=== PATIENT | male | born 1990 | race Caucasian/White ===

== ENCOUNTER 2018-03-28 15:09 | Observation (INO) ==
[2018-03-28] MEDS ORDERED: Naloxone 0.4 MG/ML INJ IVP PRN (21:17)
[2018-03-28] MEDS ORDERED: Acetaminophen 325 MG TABLET PO PRN (21:17)
--- NOTE | 2018-03-28 21:23 | Internal Med History&Physical ---
Date of Encounter: 03/29/18 Time of Encounter: 21:21 Internal Medicine - H&P: HPI Chief complaint: Cellulitis Admitted From: Direct Admit Plans for Post Hospital Care: Home History of present illness: Mr. Sweeney is a 27 year old male with no significant past medical history was transferred from [facility] for worsening left middle finger and right ulnar /wrist ulceration that started after pulling some weeds. No fevers or chills. Patient denies any IV drug abuse but admits to marijuana use. When he presented to the ED there he had an x-ray which showed signs of cellulitis of the third digit on the left but no osteomyelitis. Laboratory workup showed leukocytosis and wound cultures were collected showing staph aureus likely MRSA. The patient was receiving IV vancomycin and IV Zosyn there. Denies any headache, blurry vision, nausea, vomiting, chest pain, short of breath, abdominal pain, urinary symptoms, diarrhea, constipation, or neurological symptoms. Past Med Surg Social Fam HX - Past Medical History Medical history: migraine Psychiatric history: no psych history - Past Surgical History Additional surgical history: RECENT DENTAL EXTRACTIONS "THEY HAD TO BREAK MY (RT ) JAW." - Social History Smoking Status: Current every day smoker Smokeless Tobacco Status: No Alcohol use: rarely Drug use: marijuana Internal Medicine - H&P: Meds No Known Home Drugs 03/25/18 [History] 3 Allergy/AdvReac Type Severity Reaction Status Date / Time No Known Allergies Allergy Verified 03/28/18 18:51 All Systems PM: A 10-system review of systems was performed and is negative for pertinent findings except as documented above in the HPI. Review of systems: All systems reviewed are negative except for as mentioned above - Constitutional Vitals: Temp Pulse Resp BP Pulse Ox 98.8 F 87 16 125/77 99 03/28/18 18:37 03/28/18 18:37 03/28/18 18:37 03/28/18 18:37 03/28/18 18:37 Exam: GEN: NAD HEENT: AT, NC, No cyanosis, oral mucosa is moist, No JVD Lymphatics: No lymphadenoapthy Eyes: Extrocular muscles intact, anicteric CVS:RRR. S1, S2, No m/r/g RESP: CTAB ABD: Soft, NT, ND, +BS EXT: Significant erythema at the left third finger with granulation tissue. Right ulnar wrist area with erythema and necrotic ulceration at Center. No edema, No rashes, 2+ DP NEURO: Nonfocal, CN II-XII intact, No focal motor or sensory deficits Psych: Cooperative, Not anxious or depressed - Assessment and plan (1) Cellulitis Current Visit: No Status: Acute Assessment and plan: Admit patient to hospitals with an orthopedic consult. The patient will be placed on vancomycin as his cultures are growing staph aureus presumed to be MRSA. Nothing by mouth after midnight. IV fluids. Pain control. check UDS. Qualifiers: Site of cellulitis: unspecified site Qualified Code(s): L03.90 - Cellulitis , unspecified (2) DVT prophylaxis Current Visit: Yes Status: Acute Assessment and plan: SCDs - Time Spent With Patient Total time spent is greater than 50% in coordination of care (as documented) at patient's floor/unit and/or counseling patient:
[2018-03-28] MEDS: 0.9 % Sodium Chloride 1,000 ML IVC SCH (22:22)
[2018-03-29 00:45] LABS: Amphetamine Screen,Urine Negative ng/mL (Cutoff=1000); Barbiturate Screen,Urine Negative ng/mL (Cutoff=200); Benzodiazepines Screen,Urine Negative ng/mL (Cutoff=200); Cannabinoid Screen,Urine Positive ng/mL (Cutoff = 50); Cocaine Screen,Urine Negative ng/mL (Cutoff= 300); Opiate Screen,Urine Negative ng/mL (Cutoff=300); Phencyclidine Screen,Urine Negative ng/mL (Cutoff=25)
[2018-03-29] MEDS ORDERED: *HR* OxyCODONE/APAP 5/325 TABLET PO PRN (01:31)
[2018-03-29 06:56] LABS: Basophils # 0.1 K/mcL (0.0-0.2); Basophils % 1.4 %; Eosinophils # 0.3 K/mcL (0.0-0.6); Eosinophils % 4.1 %; Hematocrit 41.5 % (37.5-50.1); Hemoglobin 14.5 g/dL (12.9-16.9); Immature Granulocytes % 0.4 % (0-4); Lymphocytes % 27.8 %; Mean Corpuscular HGB Conc 34.9 g/dL (31.6-35.5); Mean Corpuscular Hemoglobin 31.9 pg (28.0-33.3); Mean Corpuscular Volume 91.4 fL (83.0-100.0); Mean Platelet Volume 11.9 fL (9.4-12.4); Monocytes # 0.8 K/mcL (0.0-1.3); Monocytes % 11.6 %; Neutrophils # 3.8 K/mcL (1.6-8.9); Platelet Count 167 K/mcL (140-400); Red Blood Count 4.54 M/mcL (4.19-5.50); Red Cell Distribution Width 12.6 % (11.5-14.5); Segmented Neutrophils % 54.7 %
[2018-03-29 07:14] LABS: BUN/Creatinine Ratio 18 (6-26); Blood Urea Nitrogen 11 mg/dL (6-20); Calcium 9.3 mg/dL (8.6-10.3); Carbon Dioxide 25 mEq/L (23-29); Chloride 109 mEq/L (98-107); Glucose 93 mg/dL (70-105); Magnesium 1.9 mg/dL (1.6-2.6); Osmolality,Calculated 289 (280-300); Potassium 3.9 mEq/L (3.5-5.1); Sodium 140 mEq/L (136-145); eGFR For African Americans > 60 (> 60); eGFR For Non-African Americans > 60 (> 60)
[2018-03-29] MEDS: 0.9 % Sodium Chloride 1,000 ML IVC SCH ×3 (09:48→23:43)
--- NOTE | 2018-03-29 11:49 | Internal Med Progress Note ---
Date of Encounter: 03/29/18 Time of Encounter: 11:00 - Assessment and plan (1) Cellulitis Current Visit: No Status: Acute Assessment and plan: Admit patient to hospitals with an orthopedic consult. The patient will be placed on vancomycin as his cultures are growing staph aureus presumed to be MRSA. Nothing by mouth after midnight. IV fluids. Pain control. check UDS. 03/29/2018-acute severe cellulitis of the left middle finger which is also spreading to proximal hand. I will continue IV vancomycin because the telemetry cultures are growing MRSA. Orthopedic surgery has been consulted and I will await their input Qualifiers: Site of cellulitis: unspecified site Qualified Code(s): L03.90 - Cellulitis , unspecified (2) DVT prophylaxis Current Visit: Yes Status: Acute Assessment and plan: SCDs - Time Spent With Patient Total time spent is greater than 50% in coordination of care (as documented) at patient's floor/unit and/or counseling patient: 25 - 35 minutes - Subjective Interval history: Patient claims that the pain in the left middle finger of the hand seems a little bit better. As per the nursing staff I was told that last night he had significant oozing of serosanguineous fluid - Constitutional Vitals: Temp Pulse Resp BP Pulse Ox 98.0 F 57 16 118/72 99 03/29/18 11:10 03/29/18 11:10 03/29/18 11:10 03/29/18 11:10 03/29/18 11:10 Exam: GENERAL: Alert, no distress, cooperative EYES: PERRLA, EOMI EARS: External ears normal, canals clear OROPHARYNX: Lips, mucosa, and tongue normal. Teeth and gums normal. Oropharynx normal. NECK: No jugulovenous distention, No carotid bruits, Carotid pulse normal contour, Supple LUNGS: Lungs clear to auscultation, Good diaphragmatic excursion CARDIAC: Normal S1 and S2; no rubs, murmurs, or gallops ABDOMEN: Abdomen soft, non-tender, BS normal, No masses or organomegaly EXTREMITIES: Left hand is bandaged and is not taken off because the patient preference. However pictures of how his finger looked were reviewed from the patient smartphone yesterday. Patient had a significantly swollen left middle finger with evidence of an ulceration which looks like on the medial side this is where the culture was taken and is preliminary growing MRSA. NEURO: Gait normal. Reflexes normal and symmetric. Sensation grossly intact, Cranial nerves II-XII intact PULSES: 2+ radial, 2+ carotid Rest of the exam is non contributory Internal Medicine: Result - Labs CBC & Chem 7: 03/29/18 06:20 03/29/18 06:20 Labs: Short CBC 03/29/18 Range/Units 06:20 WBC 7.0 (4.3-11.1) K/mcL Hgb 14.5 (12.9-16.9) g/dL Hct 41.5 (37.5-50.1) % Plt Count 167 (140-400) K/mcL Neutrophils # 3.8 (1.6-8.9) K/mcL BMP 03/29/18 06:20 Sodium 140 Potassium 3.9 Chloride 109 H Carbon Dioxide 25 BUN 11 Creatinine 0.60 L Glucose 93 Calcium 9.3 Consult Discharge Plan - Plan Referrals: NONE,PCP [Primary Care Provider] -
--- NOTE | 2018-03-29 16:27 | Orthopedic Consult Note ---
Date of Encounter: 03/29/18 Time of Encounter: 13:00 Assessment and Plan (1) Cellulitis Current Visit: No Status: Acute Left long finger cellulitis. Discussed case with Dr. John who recommends surgical I&D in the OR today. I discussed the procedure as well as r/b/a with the patient and he expressed understanding. All questions answered and consent was obtained and placed in chart. Bulky dressings were not removed on exam due to decision already made by Dr. John to proceed with surgery based on Dr. Kenny' exam the previous day. Dressings will be removed in OR. Plan is for packing to be placed during surgery to allow drainage overnight. Will reevaluate tomorrow and pull the packing at that time. After packing removed tomorrow, begin washing incision 3xdaily with soap/water and keep incision covered with dry gauze dressing until fully healed. Patient will need to continue this upon discharge home as well until fully healed. Continue to elevate hand. Should elevate inside stockinette from IV pole. ROM as tolerated. Pain control per hospitalist. Will follow up with Rosanna Fischer PA-C in [facility] office on 04/05/18 at 8:30am. Qualifiers: Site of cellulitis: unspecified site Qualified Code(s): L03.90 - Cellulitis , unspecified History of Present Illness Chief complaint: left long finger swelling HPI: Mr. Sweeney is a 27 year old male who was admitted to [place] [facility] on 03/25/18 for left long finger infection. He was receiving IV vancomycin and zosyn while there with no improvement. It was decided to have patient transferred to [facility] for hand consultation. Patient states roughly 3 weeks ago he was pulling weeds and ended up touching poison oak causing a "pimple-like" rash to both arms. He admits to picking at these which has caused a wound to his right wrist. Denies any of this to the fingers. He started to notice the swelling to his left long finger start roughly 1.5 weeks ago with no other known injuries. States the swelling continued to worsen with no open wounds or active drainage. States pain is constant aching, localized to finger and does not radiate up arm, worse when not elevated or with motion. Denies fevers, chills, SOB, chest pain. Patient does admit to marijuana use but denies IVDA. He is right hand dominant. Past Med Surg Social Fam HX - Past Medical History Medical history: migraine Psychiatric history: no psych history - Past Surgical History Additional surgical history: RECENT DENTAL EXTRACTIONS "THEY HAD TO BREAK MY (RT ) JAW." - Social History Smoking Status: Current every day smoker Smokeless Tobacco Status: No Alcohol use: rarely Drug use: marijuana Medications and Allergies No Known Home Drugs 03/25/18 [History] 3 Allergy/AdvReac Type Severity Reaction Status Date / Time No Known Allergies Allergy Verified 03/28/18 18:51 All Systems Reviewed: The remainder of the systems were reviewed and are negative - Constitutional Constitutional: as per HPI - Cardiovascular Cardiovascular: as per HPI - Respiratory Respiratory: as per HPI - Musculoskeletal Musculoskeletal: as per HPI Physical Exam - Constitutional Vitals: Temp Pulse Resp BP Pulse Ox 97.6 F 64 16 113/73 99 03/29/18 14:47 03/29/18 14:47 03/29/18 14:47 03/29/18 14:47 03/29/18 14:47 - Wrist & Hand left Location of pain: long finger (bulky gauze dressings in place to left hand, were not removed for exam. Full ROM of all other digits and wrist. brisk cap refill, grossly NV intact.) Results - Labs Result Diagrams: 03/29/18 06:20 03/29/18 06:20 Labs: Abnormal lab results Chloride 109 mEq/L (98-107) H 03/29/18 06:20 Creatinine 0.60 mg/dL (0.70-1.30) L 03/29/18 06:20 U Marijuana (THC) Screen Positive ng/mL (Cutoff = 50) H 03/29/18 00:20 H & H 03/29/18 Range/Units 06:20 Hgb 14.5 (12.9-16.9) g/dL Hct 41.5 (37.5-50.1) % All other labs normal. - Diagnostic results Wrist/Hand x-ray: report reviewed, image reviewed Consult Discharge Plan - Plan Referrals: NONE,PCP [Primary Care Provider] - - Attending Attestation Case and plan of care discussed with supervising physician who was available for all aspects of care.
--- NOTE | 2018-03-29 20:04 | Anesthesia Evaluation PreOp ---
Date of Encounter: 03/29/18 Time of Encounter: 20:02 - Past History Planned Operation: I&D L-long finger Abcess Cardiac History: Denies any Significant Hx Pulmonary History: Smoker ADOBE DEVELOPER History: Other (Hx Migraines) Other Medical History: Other (+MRSA cultured from L-long finger 03/26/2018) Anesthesia History: No Prior Anesthetic Complications, Past Anesthesia (Recent dental Extractions) Alcohol Use: rarely Drug use: marijuana Medications and Allergies No Known Home Drugs 03/25/18 [History] 3 Allergy/AdvReac Type Severity Reaction Status Date / Time No Known Allergies Allergy Verified 03/28/18 18:51 - Meds/Allergy Pre-op Review Medications Reviewed: Yes Allergies Reviewed: Yes Beta Blockers on Current Med List: No Anesthesia Results - Labs 03/29/18 06:20 03/29/18 06:20 Laboratory Results WBC 7.0 K/mcL (4.3-11.1) 03/29/18 06:20 RBC 4.54 M/mcL (4.19-5.50) 03/29/18 06:20 Hgb 14.5 g/dL (12.9-16.9) 03/29/18 06:20 Hct 41.5 % (37.5-50.1) 03/29/18 06:20 MCV 91.4 fL (83.0-100.0) 03/29/18 06:20 MCH 31.9 pg (28.0-33.3) 03/29/18 06:20 MCHC 34.9 g/dL (31.6-35.5) 03/29/18 06:20 RDW 12.6 % (11.5-14.5) 03/29/18 06:20 Plt Count 167 K/mcL (140-400) 03/29/18 06:20 MPV 11.9 fL (9.4-12.4) 03/29/18 06:20 Immature Gran % 0.4 % (0-4) 03/29/18 06:20 Seg Neutrophils % 54.7 % 03/29/18 06:20 Lymphocytes % 27.8 % 03/29/18 06:20 Monocytes % 11.6 % 03/29/18 06:20 Eosinophils % 4.1 % 03/29/18 06:20 Basophils % 1.4 % 03/29/18 06:20 Neutrophils # 3.8 K/mcL (1.6-8.9) 03/29/18 06:20 Lymphocytes # 2.0 K/mcL (0.6-4.6) 03/29/18 06:20 Monocytes # 0.8 K/mcL (0.0-1.3) 03/29/18 06:20 Eosinophils # 0.3 K/mcL (0.0-0.6) 03/29/18 06:20 Basophils # 0.1 K/mcL (0.0-0.2) 03/29/18 06:20 Sodium 140 mEq/L (136-145) 03/29/18 06:20 Potassium 3.9 mEq/L (3.5-5.1) 03/29/18 06:20 Chloride 109 mEq/L (98-107) H 03/29/18 06:20 Carbon Dioxide 25 mEq/L (23-29) 03/29/18 06:20 BUN 11 mg/dL (6-20) 03/29/18 06:20 Creatinine 0.60 mg/dL (0.70-1.30) L 03/29/18 06:20 Est GFR ( Amer) > 60 (> 60) 03/29/18 06:20 Est GFR (Non-Af Amer) > 60 (> 60) 03/29/18 06:20 BUN/Creatinine Ratio 18 (6-26) 03/29/18 06:20 Glucose 93 mg/dL (70-105) 03/29/18 06:20 POC Glucose 75 mg/dL (70-99) 03/29/18 17:33 Calculated Osmolality 289 (280-300) 03/29/18 06:20 Calcium 9.3 mg/dL (8.6-10.3) 03/29/18 06:20 Magnesium 1.9 mg/dL (1.6-2.6) 03/29/18 06:20 Urine Opiates Screen Negative ng/mL (Cwoudk=312) 03/29/18 00:20 Ur Barbiturates Screen Negative ng/mL (Pgbwkp=323) 03/29/18 00:20 Ur Phencyclidine Scrn Negative ng/mL (Cutoff=25) 03/29/18 00:20 Ur Amphetamines Screen Negative ng/mL (Nbgaqg=4584) 03/29/18 00:20 U Benzodiazepines Scrn Negative ng/mL (Izktsc=934) 03/29/18 00:20 Urine Cocaine Screen Negative ng/mL (Cutoff= 300) 03/29/18 00:20 U Marijuana (THC) Screen Positive ng/mL (Cutoff = 50) H 03/29/18 00:20 - Imaging EKG: pending Anesthesia Exam Vital Signs Temp Pulse Resp BP Pulse Ox 03/29/18 14:47 97.6 F 64 16 113/73 99 03/29/18 11:10 98.0 F 57 16 118/72 99 03/29/18 06:41 97.6 F 61 14 127/73 98 03/29/18 04:10 98.0 F 65 16 100/56 98 03/28/18 23:08 98.7 F 71 16 121/84 100 Intake and Output 03/29/18 03/29/18 03/29/18 07:59 15:59 23:59 Intake Total 250 / 250 100 / 100 Output Total 200 / 200 250 / 250 Balance 50 / 50 -150 / -150 Intake: IV Fluids 250 / 250 100 / 100 0.9 % Sodium Chloride 1,000 ML 100 / 100 @ 100 mls/hr IVC .Q10H MAGDIEL Rx#: [id number] Vancocin 1,000 MG In 0.9 % 250 / 250 Sodium Chloride 250 ML @ 167 mls/hr IVPB Q12H MAGDIEL Rx#: [id number] Oral 0 / 0 Output: Urine 200 / 200 250 / 250 Other: Meal NPO LUNCH NPO Weight 47.809 kg Blood Glucose* 105 86 75 Patient Weight 03/29/18 23:59 Weight 47.809 kg Height: 5'5" Weight: 105# BMI = 17.5 NPO (# of Hours): MNoc - HEENT Pupil (Motor): Pupils equal, EOMI Mallampati: II Teeth: Normal Oral Opening: Greater than 3 - ADOBE DEVELOPER LOC: Oriented ADOBE DEVELOPER Motor: Normal RUE, Normal LUE, Normal RLE, Normal LLE, Normal Face ADOBE DEVELOPER Sensory: Normal: RUE, LUE, RLE, LLE, Face - Cardiac Rhythm: Regular Murmur: None - Pulmonary Breath Sounds: bilateral Clear Respiratory Effort: Symmetrical Anesthesia Assess/Plan ASA Score: 2 Modified [place] Scale for Level of Consciousness: Cooperative, oriented, and tranquil Anesthetic Plan: General Monitoring Plan: Standard Monitors Recovery Plan: PACU
[2018-03-29] MEDS ORDERED: Vancomycin 1,000 MG VIAL ONE (21:10)
[2018-03-29] MEDS ORDERED: *HR* Propofol 200 MG/20 ML VIAL IVP ONE (21:20)
[2018-03-29] MEDS ORDERED: *HR* FentaNYL (PF) 100 MCG/2 ML VIAL ONE (21:20)
[2018-03-29] MEDS ORDERED: Lidocaine -MPF 2% 2 ML VIAL ONE (21:20)
[2018-03-29] MEDS ORDERED: *HR* Midazolam HCl 2 MG/2 ML VIAL ONE (21:20)
[2018-03-29] MEDS ORDERED: *HR* Succinylcholine 200 MG/10 ML VIAL IVP ONE (22:13)
[2018-03-29] MEDS ORDERED: Dexamethasone 4 MG/ML VIAL ONE (22:13)
[2018-03-29] MEDS ORDERED: Ondansetron 4 MG/2 ML VIAL ONE (22:13)
[2018-03-29] MEDS ORDERED: Acetaminophen IV 1,000 MG/100 ML INFUS..BTL ONE (22:42)
--- NOTE | 2018-03-29 22:42 | Operative Note ---
Date of procedure: 03/29/18 Pre-op diagnosis: Left long finger abscess Post-op diagnosis: same Procedure: Left long finger irrigation and drainage of abscess with debridement of necrotic tissue Anesthesia: SHALONDA Surgeon: Chucky John Was there an social work assistant present: No Estimated blood loss (cc): 10 Tourniquet Time (Minutes): 2 Specimen: Cultures Condition: stable Disposition: PACU Procedure in Detail: Indications: The patient is a 27-year-old [id number] man who has history of poison [place] exposure to his left hand. She started with a rash and swelling. Patient states it became infected and became very swollen. He was admitted to the [facility] 4 days ago. Culture showed positive MRSA. Procedure: The patient's IV antibiotics were held. He was brought back into the operating room and placed on the OR table in supine position with the affected upper extremity on a hand table. A sign in was performed. The patient underwent general anesthesia, a tourniquet was placed on the left upper extremity close to the axilla, and the left upper extremity was prepped and draped in the usual sterile fashion. A timeout was performed. The left long finger was swollen and erythematous, with an open wound on the radial side of the PIP joint. There was pus draining. The wound was copiously irrigated with normal saline. This thick clump of dense pus mixed with necrotic fat which was debrided with a Ray-Vianca. Once again copiously irrigated the wound with normal saline. After adequate irrigation, cultures were obtained. The patient's IV antibiotics were then administered. The left upper extremity was then elevated, exsanguinated with an Mynor wrap, and the tenderness pressure 250 mmHg. The dorsal and volar skin was opened up around the PIP joint. The extensor tendons were examined the dorsum, no involvement of the PIP joint is noted. A small rent in a 3-point was made, and the flexor tendons were intact, in good condition. No purulent fluid was noted within the sheath. The digital neurovascular bundle was also noted to be intact. A sharp debridement of the skin edges was performed. The patient essentially had a 2 cm diameter hole ulnar aspect of the PIP joint with full-thickness soft tissue loss. The tourniquet was deflated. The wounds once again irrigated with normal saline. The wound was packed with quarter-inch iodoform packing. One strip of packing was placed on the dorsum and another strip was placed volarly. Sterile dressings were applied. The patient is given a digital block with 10 mL of 0.5% Marcaine for postoperative pain control. He was extubated and taken to recovery room in stable condition. The patient's packing the pulled tomorrow afternoon and started on supportive washes with dry dressing changes, 3 times a day. He will continue on vancomycin for MRSA.
[2018-03-29] MEDS ORDERED: Acetaminophen 325 MG TABLET PO PRN (23:11)
[2018-03-29] MEDS ORDERED: Naloxone 0.4 MG/ML INJ IVP PRN (23:11)
[2018-03-29] MEDS: *HR* OxyCODONE/APAP 5/325 TABLET PO PRN (23:43)
[2018-03-30] MEDS: Nicotine 21 MG PATCH.TD24 TD SCH (09:35)
[2018-03-30] MEDS: 0.9 % Sodium Chloride 1,000 ML IVC SCH ×2 (09:46→21:35)
--- NOTE | 2018-03-30 12:19 | Infectious Disease Consult ---
Date of Encounter: 03/30/18 Time of Encounter: 12:14 Assessment and Plan (1) Leukocytosis Status: Resolved Assessment and plan: WBC elevated at 14.6 on admission. Likely secondary to left hand middle finger infection. Resolved. No blood cultures were obtained. Qualifiers: Leukocytosis type: unspecified Qualified Code(s): D72.829 - Elevated white blood cell count, unspecified (2) Abscess of skin or subcutaneous tissue Status: Acute Assessment and plan: Location: Left hand middle finger. Causative organism: MRSA. Etiology unclear, but the patient reports a recent history of dry, cracked skin to his hands which could have lead to a skin infection. X-ray of the left hand showed soft tissue swelling, but no osseous abnormality. Ortho consulted and following. Status post irrigation and drainage of the left hand middle finger abscess. Operative note reviewed. Purulence noted, but no evidence of joint, tendon, or bone involvement. Intra-op cultures are pending. Pre-op ESR 26, CRP 68. Wound care and activity restrictions per the ortho team. Continue Vancomycin IV. Pharmacy to dose. Goal trough ~15. Duration of treatment depends on the clinical picture. We will discuss the intra -op findings with the ortho team before deciding the final discharge treatment plan. Monitor renal function and for drug toxicity and dose-adjust antibiotics. Qualifiers: Site of cutaneous abscess: extremity Site of cutaneous abscess of extremity : hand Laterality: left Qualified Code(s): L02.512 - Cutaneous abscess of left hand (3) Cellulitis Status: Acute Assessment and plan: Location: Left hand middle finger. Causative organism likely MRSA. Continue antibiotics as above. Qualifiers: Site of cellulitis: unspecified site Qualified Code(s): L03.90 - Cellulitis , unspecified Infectious Disease HPI - Data of Consult Patient: new to practice Consult date: 03/30/18 Requesting Physician: Karen Talbot MD Primary Care Provider: PCP NONE Family Provider: PCP NONE - Consult Narrative Reason for consult: Left hand cellulitis and abscess History of present illness: Mr. Sweeney is a 27 year old male with no significant past medical history. The patient was admitted to [facility] on March 25 for left long finger abscess and cellulitis. He was transfered to [facility] 03/28/18 for orthopedic evaluation of left long finger abscess and cellulitis. We are consulted [facility] for antibiotic recommendations for left long finger abscess and cellulitis. Briefly, the patient is a 27-year-old male with past medical history as stated above. The patient states that about three weeks prior to presentation he got poison oak to his hands and multiple areas of his body. The poison oak rash healed, but he developed dry cracking skin to the bilateral hands. He reports he developed a couple of areas that resembled pustules to his arms that came to a head, drained, and resolved on their own. About a week prior to presentation, he developed pain, swelling, and redness to the distal aspect of the left long finger. He states that he developed an open draining ulcer to medial aspect that opened and started draining laura pus on the day he went to the ER. He reported severe pain, swelling, and redness of the left long finger with some mild swelling of the knuckle. He initially went to a local urgent care and was referred to [facility] ER. Upon presentation to [facility], the patient was afebrile and hemodynamically stable. He did have leukocytosis with neutrophilic predominance. He had a left hand x-ray that showed soft tissue swelling of the third digit, but no osseous abnormality. He did have a draining ulcer to the effected finger and a culture grew out MRSA. No blood cultures were obtained. He was started on IV Vanc and Zosyn and admitted to the hospital for further evaluation. While admitted at [facility], he received IV antibiotics. His WBC improved. He was evaluated by one of the orthopedists who recommended transfer to [facility] for formal orthopedics evaluation and possible surgery. On March 28, the patient was transferred here and evaluated by the [facility] team. He was taken to the OR and underwent irrigation and drainage of left long finger abscess by Dr. John. Operative note mentioned purulent drainage in the wound, but no involvement of bone or tendon. Intra-op cultures were obtained and are pending. Currently, the patient is on IV Vancomycin. We've been asked to evaluate and make further recommendations. During my exam today, the patient endorses the history as stated above. He denies fevers, chills, or rigors. Denies congestion, earache, or sore throat. Denies headache or neck pain, but reports he felt generally unwell. Denies chest pain, shortness of breath, or cough. Reported some intermittent nausea, worse with increased pain or when he tried to clean it and had to look at it. States his appetite was okay. Denies abdominal pain, urinary complaints. Reports pain was localized to the effected finger. Denies any redness, streaking , or edema of the hand. Denies oral thrush or additional skin lesions. The patient lives at home with his mother. He does not work outside the home. He reports exposure to dogs, cats, and birds. Denies exposure to water. Reports he smokes 1-2 packs of cigarettes per day. Denies alcohol use. Reports he usually smokes marijuana on a daily basis. CC: Karen Talbot MD Past Med Surg Social Fam HX - Past Medical History Attestation: Yes The following information was validated with the patient. Source: old records reviewed, nursing notes reviewed Medical history: migraine Psychiatric history: no psych history - Past Surgical History Surgical History: other Additional surgical history: RECENT DENTAL EXTRACTIONS "THEY HAD TO BREAK MY (RT ) JAW." - Social History Smoking Status: Current every day smoker Packs per day: 1 Smokeless Tobacco Status: No Alcohol use: rarely Drug use: marijuana Occupational status: unemployed Current living situation: Home, With Family Activity Level: Independent ambulation Recent Out of Country Travel Within the Last 8 Weeks: No Exposure or Possible Exposure to Illness During Travel: No Infectious Disease-CN:Meds OxyCODONE/APAP 5/325 [Percocet 5/325 MG] 1 each PO Q6HR PRN 5 Days #10 tablet [Rx] Sulfamethoxazole/Trimeth DS [Bactrim DS] 1 each PO BID 12 Days #24 tablet [Rx] 3 Allergy/AdvReac Type Severity Reaction Status Date / Time No Known Allergies Allergy Verified 03/28/18 18:51 All systems: reviewed and no additional remarkable complaints except as stated Exam - Constitutional Vitals: Temp Pulse Resp BP Pulse Ox 97.6 F 58 16 122/75 99 03/30/18 10:54 03/30/18 10:54 03/30/18 10:54 03/30/18 10:54 03/30/18 10:54 General appearance: cooperative, no acute distress, thin - Head Head exam: Present: atraumatic, normal inspection, normocephalic - Eye Eye exam: Present: EOMI, normal appearance, PERRL Pupils: Present: normal accommodation - ENT ENT exam: Present: mucous membranes moist - Neck Neck exam: Present: normal inspection - Respiratory Respiratory exam: Present: CTAB. Absent: rales, respiratory distress, rhonchi, wheezes - Cardiovascular Cardiovascular exam: Present: RRR, +S1, +S2 - GI/Abdominal GI/Abdominal exam: Present: normal bowel sounds, soft. Absent: distended, tenderness - Extremities Exam Extremities exam: Present: normal inspection, tenderness (Left hand middle finger). Absent: pedal edema Additional comments: Left hand middle finger dressing C/D/I. - Neurological Exam Neurological exam: Present: alert, oriented X3, no focal deficits - Psychiatric Psychiatric exam: Present: normal affect, normal mood - Skin Skin exam: Present: dry, intact, normal color, warm Infectious Disease CN: Results - Labs CBC & Chem 7: 03/31/18 08:25 03/31/18 08:25 Serology: Serology 03/30/18 03/29/18 03/29/18 Range/Units 08:59 17:33 11:10 WBC (4.3-11.1) K/mcL RBC (4.19-5.50) M/mcL Hgb (12.9-16.9) g/dL Hct (37.5-50.1) % MCV (83.0-100.0) fL MCH (28.0-33.3) pg MCHC (31.6-35.5) g/dL RDW (11.5-14.5) % Plt Count (140-400) K/mcL MPV (9.4-12.4) fL Immature Gran % (0-4) % Seg Neutrophils % % Lymphocytes % % Monocytes % % Eosinophils % % Basophils % % Neutrophils # (1.6-8.9) K/mcL Lymphocytes # (0.6-4.6) K/mcL Monocytes # (0.0-1.3) K/mcL Eosinophils # (0.0-0.6) K/mcL Basophils # (0.0-0.2) K/mcL Sodium (136-145) mEq/L Potassium (3.5-5.1) mEq/L Chloride (98-107) mEq/L Carbon Dioxide (23-29) mEq/L BUN (6-20) mg/dL Creatinine (0.70-1.30) mg/dL Est GFR ( Amer) (> 60) Est GFR (Non-Af Amer) (> 60) BUN/Creatinine Ratio (6-26) Glucose (70-105) mg/dL POC Glucose 75 86 (70-99) mg/dL Calculated Osmolality (280-300) Calcium (8.6-10.3) mg/dL Magnesium (1.6-2.6) mg/dL Vancomycin Trough 9 (5-10) mcg/mL Urine Opiates Screen (Chulus=704) ng/mL Ur Barbiturates Screen (Hdlepw=915) ng/mL Ur Phencyclidine Scrn (Cutoff=25) ng/mL Ur Amphetamines Screen (Gnafzi=6989) ng/mL U Benzodiazepines Scrn (Kqvddc=939) ng/mL Urine Cocaine Screen (Cutoff= 300) ng/mL U Marijuana (THC) Screen (Cutoff = 50) ng/mL 03/29/18 03/29/18 03/29/18 Range/Units 06:20 06:20 05:30 WBC 7.0 (4.3-11.1) K/mcL RBC 4.54 (4.19-5.50) M/mcL Hgb 14.5 (12.9-16.9) g/dL Hct 41.5 (37.5-50.1) % MCV 91.4 (83.0-100.0) fL MCH 31.9 (28.0-33.3) pg MCHC 34.9 (31.6-35.5) g/dL RDW 12.6 (11.5-14.5) % Plt Count 167 (140-400) K/mcL MPV 11.9 (9.4-12.4) fL Immature Gran % 0.4 (0-4) % Seg Neutrophils % 54.7 % Lymphocytes % 27.8 % Monocytes % 11.6 % Eosinophils % 4.1 % Basophils % 1.4 % Neutrophils # 3.8 (1.6-8.9) K/mcL Lymphocytes # 2.0 (0.6-4.6) K/mcL Monocytes # 0.8 (0.0-1.3) K/mcL Eosinophils # 0.3 (0.0-0.6) K/mcL Basophils # 0.1 (0.0-0.2) K/mcL Sodium 140 (136-145) mEq/L Potassium 3.9 (3.5-5.1) mEq/L Chloride 109 H (98-107) mEq/L Carbon Dioxide 25 (23-29) mEq/L BUN 11 (6-20) mg/dL Creatinine 0.60 L (0.70-1.30) mg/dL Est GFR ( Amer) > 60 (> 60) Est GFR (Non-Af Amer) > 60 (> 60) BUN/Creatinine Ratio 18 (6-26) Glucose 93 (70-105) mg/dL POC Glucose 105 H (70-99) mg/dL Calculated Osmolality 289 (280-300) Calcium 9.3 (8.6-10.3) mg/dL Magnesium 1.9 (1.6-2.6) mg/dL Vancomycin Trough (5-10) mcg/mL Urine Opiates Screen (Wwcsxl=823) ng/mL Ur Barbiturates Screen (Tfsyfz=808) ng/mL Ur Phencyclidine Scrn (Cutoff=25) ng/mL Ur Amphetamines Screen (Vqhgtw=0943) ng/mL U Benzodiazepines Scrn (Rofthc=983) ng/mL Urine Cocaine Screen (Cutoff= 300) ng/mL U Marijuana (THC) Screen (Cutoff = 50) ng/mL 03/29/18 Range/Units 00:20 WBC (4.3-11.1) K/mcL RBC (4.19-5.50) M/mcL Hgb (12.9-16.9) g/dL Hct (37.5-50.1) % MCV (83.0-100.0) fL MCH (28.0-33.3) pg MCHC (31.6-35.5) g/dL RDW (11.5-14.5) % Plt Count (140-400) K/mcL MPV (9.4-12.4) fL Immature Gran % (0-4) % Seg Neutrophils % % Lymphocytes % % Monocytes % % Eosinophils % % Basophils % % Neutrophils # (1.6-8.9) K/mcL Lymphocytes # (0.6-4.6) K/mcL Monocytes # (0.0-1.3) K/mcL Eosinophils # (0.0-0.6) K/mcL Basophils # (0.0-0.2) K/mcL Sodium (136-145) mEq/L Potassium (3.5-5.1) mEq/L Chloride (98-107) mEq/L Carbon Dioxide (23-29) mEq/L BUN (6-20) mg/dL Creatinine (0.70-1.30) mg/dL Est GFR ( Amer) (> 60) Est GFR (Non-Af Amer) (> 60) BUN/Creatinine Ratio (6-26) Glucose (70-105) mg/dL POC Glucose (70-99) mg/dL Calculated Osmolality (280-300) Calcium (8.6-10.3) mg/dL Magnesium (1.6-2.6) mg/dL Vancomycin Trough (5-10) mcg/mL Urine Opiates Screen Negative (Foqkgj=142) ng/mL Ur Barbiturates Screen Negative (Wyhgkz=199) ng/mL Ur Phencyclidine Scrn Negative (Cutoff=25) ng/mL Ur Amphetamines Screen Negative (Jvwmtj=0716) ng/mL U Benzodiazepines Scrn Negative (Fioemq=183) ng/mL Urine Cocaine Screen Negative (Cutoff= 300) ng/mL U Marijuana (THC) Screen Positive H (Cutoff = 50) ng/mL - VTE Documentation of Mechanical Device: Intermittent pneumatic compression device Consult Discharge Plan - Plan Instructions: Sulfamethoxazole/Trimethoprim (By mouth), Oxycodone/ Acetaminophen (By mouth), Acute Wound Care (DC) Referrals: Rosanna Fischer, PAC [Physician Food Checkers And Cashiers Supervisor] - 04/05/18 8:30 am Prescriptions: OxyCODONE/APAP 5/325 [Percocet 5/325 MG] 1 each PO Q6HR PRN 5 Days #10 tablet PRN Reason: Pain Sulfamethoxazole/Trimeth DS [Bactrim DS] 1 each PO BID 12 Days #24 tablet - Attending Attestation I examined this patient and my medical decision-making was reviewed with the Resident Physician. I agree with the documented findings, disposition and treatment plan as described except to the extent set forth below. Is an addendum to original report dictated by Pattie Jefferson CNP. Please refer to Prem funes for full detail. Patient is a 27-year-old gentleman who tells me that he has history of hemochromatosis came in with left hand middle finger infection with MRSA. Etiology for this infections unclear. Patient denied any trauma or animal bite. X-ray revealed soft tissue swelling but no osseous abnormality. Orthopedics were consulted and evaluated the patient and to complete for I&D. I spoke with Dr. Quinn and he told me that the infection appears superficial was no fascial compromise there is no bone or septic arthritis involvement. Intra-Op cultures were positive for MRSA Assessment and plan: Leukocytosis Abscess of the skin left hand middle finger with MRSA status post I&D Cellulitis Questionable hemochromatosis Recommendations: Continue vancomycin for now go vancomycin trough around 10 On discharge will probably switch him to oral antibiotics once susceptibilities are back In the meantime monitor labs and for drug toxicity We will continue to follow
--- NOTE | 2018-03-30 12:22 | Internal Med Progress Note ---
Date of Encounter: 03/30/18 Time of Encounter: 11:20 - Assessment and plan (1) Cellulitis Current Visit: No Status: Acute Assessment and plan: Admit patient to hospitals with an orthopedic consult. The patient will be placed on vancomycin as his cultures are growing staph aureus presumed to be MRSA. Nothing by mouth after midnight. IV fluids. Pain control. check UDS. 03/29/2018-acute severe cellulitis of the left middle finger which is also spreading to proximal hand. I will continue IV vancomycin because the telemetry cultures are growing MRSA. Orthopedic surgery has been consulted and I will await their input 03/30-left long finger abscess with MRSA in the wound -infectious disease has been consulted given MRSA and duration of therapy recommendations at the request of orthopedic surgery. Patient is postop day 1 of left long finger irrigation and drainage of abscess with debridement of necrotic tissue. For now we will continue IV vancomycin and tailor antibiotics appropriately Qualifiers: Qualified Code(s): L03.90 - Cellulitis, unspecified (2) DVT prophylaxis Current Visit: Yes Status: Acute Assessment and plan: SCDs - Time Spent With Patient Total time spent is greater than 50% in coordination of care (as documented) at patient's floor/unit and/or counseling patient: 25 - 35 minutes - Subjective Interval history: Patient was seen and examined at the bedside. He underwent a debridement and washing of the left long finger along with irrigation and drainage of necrotic tissue yesterday. Today it is in bandages and they will not removed for patient preference. - Constitutional Vitals: Temp Pulse Resp BP Pulse Ox 97.6 F 58 16 122/75 99 03/30/18 10:54 03/30/18 10:54 03/30/18 10:54 03/30/18 10:54 03/30/18 10:54 Exam: GENERAL: Alert, no distress, cooperative EYES: PERRLA, EOMI EARS: External ears normal, canals clear OROPHARYNX: Lips, mucosa, and tongue normal. Teeth and gums normal. Oropharynx normal. NECK: No jugulovenous distention, No carotid bruits, Carotid pulse normal contour, Supple LUNGS: Lungs clear to auscultation, Good diaphragmatic excursion CARDIAC: Normal S1 and S2; no rubs, murmurs, or gallops ABDOMEN: Abdomen soft, non-tender, BS normal, No masses or organomegaly EXTREMITIES: Left hand and bandage and not removed for patient preference NEURO: Gait normal. Reflexes normal and symmetric. Sensation grossly intact, Cranial nerves II-XII intact PULSES: 2+ radial, 2+ carotid Rest of the exam is non contributory Internal Medicine: Result - Labs CBC & Chem 7: 03/29/18 06:20 03/29/18 06:20 - VTE Documentation of Mechanical Device: Intermittent pneumatic compression device Consult Discharge Plan - Plan Referrals: Rosanna Fischer, PAC [Physician Traffic And Transport Planner] - 04/05/18 8:30 am
[2018-03-30] MEDS: *HR* OxyCODONE/APAP 5/325 TABLET PO PRN ×2 (16:20→22:55)
--- NOTE | 2018-03-30 16:32 | Orthopedics Progress Note ---
Date of Encounter: 03/30/18 Time of Encounter: 16:00 - Assessment and Plan (1) Status post incision and drainage Current Visit: Yes Status: Acute (2) Abscess of skin or subcutaneous tissue Current Visit: No Status: Acute Qualifiers: Site of cutaneous abscess: extremity Site of cutaneous abscess of extremity : hand Laterality: left Qualified Code(s): L02.512 - Cutaneous abscess of left hand Subjective Principal diagnosis: left finger abscess Interval history: Date of procedure: 03/29/18 Pre-op diagnosis: Left long finger abscess Procedure: Left long finger irrigation and drainage of abscess with debridement of necrotic tissue Patient seen for postoperative day 1 of his left long finger I&D by Dr. John. He states he is feeling well today and he states he is having less pain to left hand now. He is alert and oriented 3. Bulky dressing noted to the left long finger. Bulky dressing taken down. Packing removed. Mild bleeding noted with packing removal. Finger has cap refill less than 2 seconds. Wound was flushed with water and then gently cleansed with soap and water. This was rinsed and padded dry. New dressing applied with gauze and Kerlix. This was secured in place with paper tape. Patient was educated throughout this procedure is how to do this at home. He is to do this 3 times daily. While inpatient, nursing educated to perform TID wound cleansing and dressing changes. Patient to keep follow up in the office as scheduled. Objective Vital signs: Vital Signs Temp Pulse Resp BP Pulse Ox 03/30/18 10:54 97.6 F 58 16 122/75 99 03/30/18 06:41 97.7 F 70 15 117/73 98 03/30/18 03:00 97.6 F 63 14 122/71 97 03/30/18 00:56 97.5 F L 66 14 134/96 100 03/30/18 00:11 97.4 F L 65 16 140/93 100 03/29/18 23:38 97.5 F L 71 16 129/92 100 03/29/18 22:58 98.3 F 53 16 138/91 100 03/29/18 22:48 58 16 138/98 100 03/29/18 22:38 57 16 140/93 99 03/29/18 22:28 97.8 F 55 16 133/89 100 Intake and Output 03/30/18 03/30/18 03/30/18 07:59 15:59 23:59 Intake Total 480 / 480 1250 / 1250 Output Total 1900 / 1900 800 / 800 Balance -1420 / -1420 450 / 450 Intake: IV Fluids 1250 / 1250 0.9 % Sodium Chloride 1,000 ML 1000 / 1000 @ 100 mls/hr IVC .Q10H [facility] Rx#: [id number] Vancocin 1,500 MG In 0.9 % 250 / 250 Sodium Chloride 250 ML @ 166.67 mls/hr IVPB Q12H MAGDIEL Rx#: [id number] Oral 480 / 480 Output: Urine 1900 / 1900 800 / 800 Other: Weight 48.2 kg Patient Weight 03/30/18 23:59 Weight 48.2 kg - Labs CBC & BMP: 03/29/18 06:20 03/29/18 06:20 Labs: Abnormal lab results Chloride 109 mEq/L (98-107) H 03/29/18 06:20 Creatinine 0.60 mg/dL (0.70-1.30) L 03/29/18 06:20 U Marijuana (THC) Screen Positive ng/mL (Cutoff = 50) H 03/29/18 00:20 - VTE Documentation of Mechanical Device: Intermittent pneumatic compression device Consult Discharge Plan - Plan Referrals: Rosanna Fischer, PAC [Physician Crop Specialist] - 04/05/18 8:30 am
[2018-03-31] MEDS: Nicotine 21 MG PATCH.TD24 TD SCH (07:53)
[2018-03-31] MEDS: 0.9 % Sodium Chloride 1,000 ML IVC SCH (07:54)
[2018-03-31 08:48] LABS: Basophils # 0.1 K/mcL (0.0-0.2); Basophils % 1.1 %; Eosinophils # 0.2 K/mcL (0.0-0.6); Eosinophils % 2.3 %; Hematocrit 38.8 % (37.5-50.1); Hemoglobin 13.3 g/dL (12.9-16.9); Immature Granulocytes % 0.5 % (0-4); Lymphocytes % 46.2 %; Mean Corpuscular HGB Conc 34.3 g/dL (31.6-35.5); Mean Corpuscular Hemoglobin 30.7 pg (28.0-33.3); Mean Corpuscular Volume 89.6 fL (83.0-100.0); Mean Platelet Volume 11.3 fL (9.4-12.4); Monocytes # 0.6 K/mcL (0.0-1.3); Monocytes % 8.8 %; Neutrophils # 2.7 K/mcL (1.6-8.9); Platelet Count 177 K/mcL (140-400); Red Blood Count 4.33 M/mcL (4.19-5.50); Red Cell Distribution Width 12.4 % (11.5-14.5); Segmented Neutrophils % 41.1 %
[2018-03-31 09:26] LABS: BUN/Creatinine Ratio 8 (6-26); Blood Urea Nitrogen 5 mg/dL (6-20); C-Reactive Protein 7 mg/L (Less than 10); Calcium 8.9 mg/dL (8.6-10.3); Carbon Dioxide 26 mEq/L (23-29); Chloride 109 mEq/L (98-107); Glucose 84 mg/dL (70-105); Osmolality,Calculated 288 (280-300); Potassium 3.6 mEq/L (3.5-5.1); Sodium 141 mEq/L (136-145); eGFR For African Americans > 60 (> 60); eGFR For Non-African Americans > 60 (> 60)
--- NOTE | 2018-03-31 09:49 | Infectious Disease Progress No ---
Date of Encounter: 03/31/18 Time of Encounter: 09:47 - Assessment and Plan (1) Leukocytosis Current Visit: Yes Status: Resolved WBC elevated at 14.6 on admission. Likely secondary to left hand middle finger infection. Resolved. No blood cultures were obtained. Qualifiers: Leukocytosis type: unspecified Qualified Code(s): D72.829 - Elevated white blood cell count, unspecified (2) Abscess of skin or subcutaneous tissue Current Visit: No Status: Acute Location: Left hand middle finger. Causative organism: MRSA. Etiology unclear, but the patient reports a recent history of dry, cracked skin to his hands which could have lead to a skin infection. X-ray of the left hand showed soft tissue swelling, but no osseous abnormality. Ortho consulted and following. Status post irrigation and drainage of the left hand middle finger abscess. Operative note reviewed. Purulence noted, but no evidence of joint, tendon, or bone involvement. Intra-op cultures are positive for S. aureus, susceptibilities are pending, but likely MRSA based on previous results. Pre-op ESR 26, CRP 68. --> improved to 17 and 7, respectively. Wound care and activity restrictions per the ortho team. Continue Vancomycin IV. Pharmacy to dose. Goal trough ~15. Duration of treatment depends on the clinical picture. Can transition to PO Bactrim DS 1 tab PO BID to complete a 14 day course from the date of surgery. Treat through 04/11/18. Monitor renal function and for drug toxicity and dose-adjust antibiotics. Continue contact precautions per protocol. Qualifiers: Site of cutaneous abscess: extremity Site of cutaneous abscess of extremity : hand Laterality: left Qualified Code(s): L02.512 - Cutaneous abscess of left hand (3) Cellulitis Current Visit: No Status: Acute Location: Left hand middle finger. Causative organism likely MRSA. Continue antibiotics as above. Qualifiers: Site of cellulitis: unspecified site Qualified Code(s): L03.90 - Cellulitis , unspecified - Subjective Interval history: Patient seen and examined. No acute events noted overnight. Patient reports minimal pain at the surgical site. Denies any fevers or chills or rigors. Denies chest pain, shortness of breath, or cough. Denies nausea, vomiting, diarrhea, or constipation. Denies abdominal pain, urinary complaints, or appetite changes. Denies any oral thrush or skin lesions. Infect Dis PN-Objective Data - Labs CBC & Chem 7: 03/31/18 08:25 03/31/18 08:25 Labs: Laboratory Results - last 24 hr 03/31/18 03/31/18 03/31/18 08:25 08:25 08:25 WBC 6.5 RBC 4.33 Hgb 13.3 Hct 38.8 MCV 89.6 MCH 30.7 MCHC 34.3 RDW 12.4 Plt Count 177 MPV 11.3 Immature Gran % 0.5 Seg Neutrophils % 41.1 Lymphocytes % 46.2 Monocytes % 8.8 Eosinophils % 2.3 Basophils % 1.1 Neutrophils # 2.7 Lymphocytes # 3.0 Monocytes # 0.6 Eosinophils # 0.2 Basophils # 0.1 ESR 17 H Sodium 141 Potassium 3.6 Chloride 109 H Carbon Dioxide 26 BUN 5 L Creatinine 0.60 L Est GFR ( Amer) > 60 Est GFR (Non-Af Amer) > 60 BUN/Creatinine Ratio 8 Glucose 84 Calculated Osmolality 288 Calcium 8.9 C-Reactive Protein 7 Cultures: Cultures 03/29/18 22:50 Wound Culture - Preliminary Left Hand Staphylococcus aureus Exam - Constitutional Vitals: Temp Pulse Resp BP Pulse Ox 98.2 F 66 16 122/77 98 03/31/18 06:39 03/31/18 06:39 03/31/18 06:39 03/31/18 06:39 03/31/18 06:39 General appearance: cooperative, no acute distress, thin - Head Head exam: Present: atraumatic, normal inspection, normocephalic - Eye Eye exam: Present: EOMI, normal appearance, PERRL Pupils: Present: normal accommodation - ENT ENT exam: Present: mucous membranes moist - Neck Neck exam: Present: normal inspection - Respiratory Respiratory exam: Present: CTAB. Absent: rales, respiratory distress, rhonchi, wheezes - Cardiovascular Cardiovascular exam: Present: RRR, +S1, +S2 - GI/Abdominal GI/Abdominal exam: Present: normal bowel sounds, soft. Absent: distended, tenderness - Extremities Exam Extremities exam: Present: joint swelling (LEft hand middle finger PIP), tenderness (LEft hand third finger). Absent: pedal edema Additional comments: Left hand middle finger with mild edema and erythema. Surgical wound moist, beefy red with scant bloody drainage. No pus or foul odor noted. No purulence. - Neurological Exam Neurological exam: Present: alert, oriented X3, no focal deficits - Psychiatric Psychiatric exam: Present: normal affect, normal mood - Skin Skin exam: Present: dry, intact, normal color, warm - VTE Documentation of Mechanical Device: Intermittent pneumatic compression device Consult Discharge Plan - Plan Instructions: Sulfamethoxazole/Trimethoprim (By mouth), Oxycodone/ Acetaminophen (By mouth), Acute Wound Care (DC) Referrals: Rosanna Fischer, PAC [Physician Heel Seat Laster] - 04/05/18 8:30 am Prescriptions: OxyCODONE/APAP 5/325 [Percocet 5/325 MG] 1 each PO Q6HR PRN 5 Days #10 tablet PRN Reason: Pain Sulfamethoxazole/Trimeth DS [Bactrim DS] 1 each PO BID 12 Days #24 tablet - Attending Attestation I examined this patient and my medical decision-making was reviewed with the Resident Physician. I agree with the documented findings, disposition and treatment plan as described except to the extent set forth below.
[2018-03-31 10:14] VITALS: BP 127/80
[2018-03-31] MEDS: *HR* OxyCODONE/APAP 5/325 TABLET PO PRN (11:14)
--- NOTE | 2018-03-31 13:19 | Orthopedics Progress Note ---
Date of Encounter: 03/31/18 Time of Encounter: 12:45 - Assessment and Plan (1) Cellulitis Status: Acute POD#2 s/p Left LF I&D of abscess with debridement of necrotic tissue 03/29/18 Packing was removed yesterday. Continue washing incision 3xdaily with soap/water and keep incision covered with dry gauze dressing until fully healed. Patient will need to continue this upon discharge home as well until fully healed. ID also on board and recommend transitioning to PO bactrim upon discharge. Continue to elevate hand. ROM as tolerated. Pain control per hospitalist. Will follow up with Rosanna Fischer PA-C in [facility] office on 04/05/18 at 8:30am. Qualifiers: Site of cellulitis: unspecified site Qualified Code(s): L03.90 - Cellulitis , unspecified Subjective Principal diagnosis: POD#2 s/p Left LF I&D of abscess with debridement of necrotic tissue 03/29/18 Interval history: Patient doing well today with no events overnight. States pain is much improved. Admits he has not been trying to move the finger much. Objective Vital signs: Vital Signs Temp Pulse Resp BP Pulse Ox 03/31/18 10:13 98.3 F 65 16 127/80 99 03/31/18 06:39 98.2 F 66 16 122/77 98 03/31/18 04:27 98.1 F 61 14 125/75 100 03/30/18 20:19 98.1 F 61 14 117/82 98 03/30/18 16:43 98.0 F 60 17 155/86 100 Intake and Output 03/30/18 03/31/18 03/31/18 23:59 07:59 15:59 Intake Total 1240 / 1240 1350 / 1350 380 / 380 Output Total 1400 / 1400 650 / 650 700 / 700 Balance -160 / -160 700 / 700 -320 / -320 Intake: IV Fluids 1000 / 1000 1150 / 1150 0.9 % Sodium Chloride 1,000 ML 1000 / 1000 900 / 900 @ 100 mls/hr IVC .Q10H MAGDI[facility] Rx#: [id number] Vancocin 1,500 MG In 0.9 % 250 / 250 Sodium Chloride 250 ML @ 166.67 mls/hr IVPB Q12H MAGDI[facility] Rx#: [id number] Oral 240 / 240 200 / 200 380 / 380 Output: Urine 1400 / 1400 650 / 650 700 / 700 Other: Meal Breakfast Percent of Meal Consumed 100% Weight 49 kg Patient Weight 03/31/18 23:59 Weight 49 kg Incision: draining (improved swelling and erythema to left index finger primarily around middle phalanx/ PIPJ, open wound noted to radial side of finger PIPJ and continuation of purulent drainage from opening upon palpation, ROM significantly limited at PIPJ. brisk cap refill, grossly NV intact distally ) - Labs CBC & BMP: 03/31/18 08:25 03/31/18 08:25 Labs: Abnormal lab results ESR 17 mm/hr (0-10) H 03/31/18 08:25 Chloride 109 mEq/L (98-107) H 03/31/18 08:25 BUN 5 mg/dL (6-20) L 03/31/18 08:25 Creatinine 0.60 mg/dL (0.70-1.30) L 03/31/18 08:25 U Marijuana (THC) Screen Positive ng/mL (Cutoff = 50) H 03/29/18 00:20 - VTE Documentation of Mechanical Device: Intermittent pneumatic compression device Consult Discharge Plan - Plan Instructions: Sulfamethoxazole/Trimethoprim (By mouth), Oxycodone/ Acetaminophen (By mouth), Acute Wound Care (DC) Referrals: Rosanna Fischer PAC [Physician Web Designer] - 04/05/18 8:30 am Prescriptions: OxyCODONE/APAP 5/325 [Percocet 5/325 MG] 1 each PO Q6HR PRN 5 Days #10 tablet PRN Reason: Pain Sulfamethoxazole/Trimeth DS [Bactrim DS] 1 each PO BID 12 Days #24 tablet
--- NOTE | 2018-03-31 13:34 | Discharge Summary ---
- NOTES TO OUTPATIENT PROVIDER Notes to Outpatient Provider: Patient has been diagnosed with an MRSA finger infection and abscess and is status post I&D as per orthopedic surgery. He needs more days of oral antibiotics Orders not resulted at time of discharge: Pending orders 03/29/18 22:50 Culture,Anaerobic [RM] Routine Culture,Wound [RM] Routine Date of Encounter: 03/31/18 Time of Encounter: 13:32 - Discharge Diagnosis (1) Cellulitis Priority: Primary Status: Acute Qualifiers: Site of cellulitis: unspecified site Qualified Code(s): L03.90 - Cellulitis , unspecified (2) DVT prophylaxis Priority: Secondary Status: Acute Hospital course: Mr. Sweeney is a 27 year old male Discharge discussed with: patient, nurse Time spent discussing smoking cessation with patient: more than 10 minutes - Time Spent with Patient Total time spent providing and/or coordinating discharge services: Greater than 30 minutes - Discharge Medications Prescriptions: OxyCODONE/APAP 5/325 [Percocet 5/325 MG] 1 each PO Q6HR PRN 5 Days #10 tablet PRN Reason: Pain Sulfamethoxazole/Trimeth DS [Bactrim DS] 1 each PO BID 12 Days #24 tablet Home Medications: OxyCODONE/APAP 5/325 [Percocet 5/325 MG] 1 each PO Q6HR PRN 5 Days #10 tablet [Rx] Sulfamethoxazole/Trimeth DS [Bactrim DS] 1 each PO BID 12 Days #24 tablet [Rx] Allergies/Adverse Reactions: 3 Allergy/AdvReac Type Severity Reaction Status Date / Time No Known Allergies Allergy Verified 03/28/18 18:51 Date of admission: 03/28/18 18:33 Primary care physician: PCP NONE Consults: 03/30/18 11:58 Consult to Infectious Diseases [CONS] Routine Consulting Provider: [facility] [place] Reason for Consult: MRSA finger infection/ abscess Time Notified: 11:59 Call Completed: Yes - Constitutional Vitals: Temp Pulse Resp BP Pulse Ox 98.3 F 65 16 127/80 99 03/31/18 10:13 03/31/18 10:13 03/31/18 10:13 03/31/18 10:13 03/31/18 10:13 Exam: GENERAL: Alert, no distress, cooperative EYES: PERRLA, EOMI EARS: External ears normal, canals clear OROPHARYNX: Lips, mucosa, and tongue normal. Teeth and gums normal. Oropharynx normal. NECK: No jugulovenous distention, No carotid bruits, Carotid pulse normal contour, Supple LUNGS: Lungs clear to auscultation, Good diaphragmatic excursion CARDIAC: Normal S1 and S2; no rubs, murmurs, or gallops ABDOMEN: Abdomen soft, non-tender, BS normal, No masses or organomegaly left hand bandaged. - Patient Status Disposition: Home, Self-Care Condition: Good Functional capacity at discharge: independent ambulation Overall status at discharge: patient is back to baseline - Discharge Instructions Follow Up With: Rosanna Fischer, PAC [Physician Stagecraft Teacher] - 04/05/18 8:30 am - Diet and Activity Activity: resume usual activities as tolerated Diet: advance to your usual diet - VTE Documentation of Mechanical Device: Intermittent pneumatic compression device
[2018-03-31] MEDS ORDERED: Aminoglycoside Consult 1 EACH MC ONE (15:41)
== END 2018-03-31 15:42 | disposition home or self-care (01) ==
LOC: 3ANU
PROVIDERS: ADMIT Internal Medicine Cardiovascular Disease; ATTEND Internal Medicine Cardiovascular Disease